=== PATIENT | male | born 1980 | race African-American/Black ===

== ENCOUNTER 2019-11-19 07:04 | Emergency (ER) | payer SELFPAY ==
[~2019-11-19] VITALS: Ht 167.6 cm; Wt 159.0 kg
[~2019-11-19 07:04] MED LIST: ASPI-482 PO; CETI1TAB7 PO; LISI1TAB20 PO; TRAM-48 PO; VENL150C PO
--- NOTE | 2019-11-19 07:24 | PHYS DOC ---
Past Medical History Past Medical History: Anxiety, Depression, GERD, Hypertension, Other Additional Past Medical Histor: " narcolepsy symptoms" ADHD, autism, sleep apnea, IBS Past Surgical History: Appendectomy, Other Additional Past Surgical Histo: " eyes" , ventral hernia repair, chronic generalized muscle ache Smoking Status: Never Smoker Alcohol Use: None Drug Use: None General Adult EDM: Chief Complaint: ABDOMINAL PAIN HPI: HPI: Patient is a 39 year old male presents with history of left flank pain which occurred suddenly at 0400 this morning. Patient does report some associated nausea and vomiting. Reports has had some loose bowel movements. Patient does have a past medical history of IBS. Denies fever or chills. Denies known sick contacts. Denies travel outside [place]. Review of Systems: Review of Systems: Constitutional: Denies fever or chills Eyes: Denies redness or eye pain HENT: Denies nasal congestion or sore throat Respiratory: Denies cough or shortness of breath Cardiovascular: Denies chest pain or palpitations GI: Reports left abdominal pain, nausea, and vomiting : Denies dysuria or hematuria Musculoskeletal: Reports left flank pain; denies neck pain Integument: Denies rash or skin lesions Neurologic: Denies headache, focal weakness or sensory changes Complete systems were reviewed and found to be within normal limits, except as documented in this note. Current Medications: Current Medications Medications (Trade) Dose Ordered Sig/Ernestine Start Time Stop Time Status Last Admin Dose Admin Famotidine (Pepcid Vial) 20 mg 1X ONCE 11/19/19 07:30 11/19/19 07:31 Ketorolac Tromethamine (Toradol 15mg Vial) 15 mg 1X ONCE 11/19/19 07:30 11/19/19 07:31 Metoclopramide HCl (Reglan Vial) 10 mg 1X ONCE 11/19/19 07:30 11/19/19 07:31 Sodium Chloride 1,000 ml @ 1,000 mls/hr 1X ONCE 11/19/19 07:15 11/19/19 08:14 Allergies: Allergies: Allergies Coded Allergies Type Severity Reaction Last Updated Verified cyclopentolate Allergy Intermediate Rash 07/08/14 No morphine Adverse Reaction Intermediate " makes my pain worse" 07/08/14 No Physical Exam: PE: Constitutional: Well developed, obese, no acute distress, non-toxic appearance HENT: Normocephalic, atraumatic Eyes: Conjunctiva normal, no discharge Neck: Normal range of motion, no tenderness, supple Cardiovascular: Heart rate normal, regular rhythm Lungs & Thorax: Bilateral breath sounds clear to auscultation, no wheezing Abdomen: Soft, no tenderness, obese Skin: Warm, dry, no erythema, no rash Back: No tenderness, left CVA tenderness Extremities: No tenderness, ROM intact, no edema Neurologic: Alert and oriented X 3, no focal deficits noted Psychologic: Affect normal, judgment normal EKG: EKG: [] Radiology/Procedures: Radiology/Procedures: PROCEDURE: CT ABDOMEN PELVIS WO CONTRAST CT ABDOMEN PELVIS WO CONTRAST History: Left flank pain. Technique: Noncontrast examination of the abdomen and pelvis. Coronal and sagittal reconstructions were performed. Exposure: One or more of the following individualized dose reduction techniques were utilized for this examination: 1. Automated exposure control 2. Adjustment of the mA and/or kV according to patient size 3. Use of iterative reconstruction technique. Comparison: September 07, 2007 Findings: Lower chest: No consolidation or pleural effusion. Abdomen and pelvis: Hepatic steatosis. The spleen, adrenal glands, pancreas and gallbladder are unremarkable. No biliary ductal dilatation. Mild left perinephric and periureteral fat stranding. No hydronephrosis. No renal, ureteral or urinary bladder stone. Decompressed urinary bladder. Prior appendectomy. No evidence of bowel obstruction. Periumbilical fat-containing hernia, increased compared to 2008. No pathologic lymphadenopathy. No ascites. Bones: No pathologic osseous lesions. Impression: 1. Mild left perinephric/periureteral fat stranding, may relate to recently passed stone or infection. No hydronephrosis. 2. Periumbilical fat-containing hernia, increased compared to 2007. Electronically signed by: Douglas Holbrook DO (11/19/2019 8:52 AM) [id number] Course & Med Decision Making: Course & Med Decision Making Pertinent Labs and Imaging studies reviewed. (See chart for details) Patient presents with sudden left-sided flank pain and associated nausea and vomiting. Patient does report history of IBS. Pain/nausea addressed. IV fluid hydration given. Labs obtained and posted to chart. BUN/Creat normal. UA with microscopic hematuria. CT abdomen/pelvis with signs of possible recently passed stone. No obstructing stone currently. Patient stable for discharge with outpatient follow-up with PCP. Discussed find ings and plan with patient, who acknowledges understanding and agreement. Jenny Disclaimer: Jenny Disclaimer: This electronic medical record was generated, in whole or in part, using a voice recognition dictation system. Departure Departure Impression: Primary Impression: Flank pain, acute Disposition: 01 HOME, SELF-CARE Condition: STABLE Referrals: Dc SMART MD (PCP) Patient Instructions: Diet for Kidney Stones, Kidney Stones, [id number] Scripts Ondansetron (ONDANSETRON ODT) 4 Mg Tab.rapdis 1 TAB PO Q6HRS PRN for NAUSEA, #16 TAB Prov: CLAY ALEXANDER DO 11/19/19 CLAY ALEXANDER DO November 19, 2019 07:24
[2019-11-19] MEDS: IV NORMAL SALINE 1000ML BAG 1,000 ML IV ONE (07:41)
[2019-11-19] MEDS: FAMOTIDINE 20 MG/2 ML VIAL IVP ONE (07:41)
[2019-11-19] MEDS: METOCLOPRAMIDE HCL 10 MG/2 ML VIAL. IVP ONE (07:41)
[2019-11-19] MEDS: KETOROLAC 15 MG/ML VIAL. IVP ONE (07:42)
[2019-11-19 07:59] LABS: BASO # 0.1 x10^3/uL (0.0-0.2); BASO % 1 % (0-3); EOS # 0.1 x10^3/uL (0.0-0.7); EOS % 1 % (0-3); HEMATOCRIT 48.9 % (39.0-53.0); HEMOGLOBIN 16.1 g/dL (13.0-17.5); LYMPH # 1.9 x10^3/uL (1.0-4.8); LYMPH % 15 % (24-48); MEAN CORPUSCULAR HEMOGLOBIN 30 pg (25-35); MEAN CORPUSCULAR HGB CONC 33 g/dL (31-37); MEAN CORPUSCULAR VOLUME 91 fL (79-100); MONO % 8 % (0-9); NEUT # 9.5 x10^3/uL (1.8-7.7); NEUT % 76 % (31-73); PLATELET COUNT 300 x10^3/uL (140-400); RED BLOOD COUNT 5.39 x10^6/uL (4.30-5.70); RED CELL DISTRIBUTION WIDTH 14.6 % (11.5-14.5); WHITE BLOOD COUNT 12.6 x10^3/uL (4.0-11.0)
[2019-11-19 08:06] LABS: CREATININE 1.1 mg/dL (0.7-1.3); GFR 89.3; POTASSIUM 3.7 mmol/L (3.5-5.1)
[2019-11-19 08:13] LABS: ALBUMIN 3.3 g/dL (3.4-5.0); ALBUMIN/GLOBULIN RATIO 0.6 (1.0-1.7); BACTERIA,URINE 0 /HPF (0-FEW); BILIRUBIN,URINE NEGATIVE (NEG); CLARITY,URINE HAZY; COLOR,URINE STRAW; MAGNESIUM 1.9 mg/dL (1.8-2.4); NITRITE,URINE NEGATIVE (NEG); PROTEIN,URINE NEGATIVE (NEG-TRACE); RBC,URINE >40 /HPF (0-2); SQUAMOUS EPITHELIAL CELL,UR FEW /LPF; TOTAL BILIRUBIN 0.3 mg/dL (0.2-1.0); TOTAL PROTEIN 8.4 g/dL (6.4-8.2); UROBILINOGEN,URINE 0.2 mg/dL (0.2 mg/dL); WBC,URINE OCC /HPF (0-4)
--- NOTE | 2019-11-19 08:55 | RAD ---
CT ABDOMEN PELVIS WO CONTRAST History: Left flank pain. Technique: Noncontrast examination of the abdomen and pelvis. Coronal and sagittal reconstructions were performed. Exposure: One or more of the following individualized dose reduction techniques were utilized for this examination: 1. Automated exposure control 2. Adjustment of the mA and/or kV according to patient size 3. Use of iterative reconstruction technique. Comparison: September 07, 2007 Findings: Lower chest: No consolidation or pleural effusion. Abdomen and pelvis: Hepatic steatosis. The spleen, adrenal glands, pancreas and gallbladder are unremarkable. No biliary ductal dilatation. Mild left perinephric and periureteral fat stranding. No hydronephrosis. No renal, ureteral or urinary bladder stone. Decompressed urinary bladder. Prior appendectomy. No evidence of bowel obstruction. Periumbilical fat-containing hernia, increased compared to 2007. No pathologic lymphadenopathy. No ascites. Bones: No pathologic osseous lesions. Impression: 1. Mild left perinephric/periureteral fat stranding, may relate to recently passed stone or infection. No hydronephrosis. 2. Periumbilical fat-containing hernia, increased compared to 2007. Electronically signed by: Douglas Holbrook DO (11/19/2019 8:52 AM) [id number]
[2019-11-19 09:00] VITALS: BP 154/76
[2019-11-19] MEDS ORDERED: ONDA4TAB12 PO (09:04)
== END 2019-11-19 09:25 | disposition home or self-care (01) ==
LOC: ER 07:04
DX: R10.9 Unspecified abdominal pain (principal); R11.2 Nausea with vomiting, unspecified; K58.9 Irritable bowel syndrome, unspecified; K21.9 Gastro-esophageal reflux disease without esophagitis; I10 Essential (primary) hypertension; Z90.89 Acquired absence of other organs; Z98.890 Other specified postprocedural states; Z88.5 Allergy status to narcotic agent; Z88.8 Allergy status to other drugs, medicaments and biological substances
CPT/HCPCS: 36415; 74176; 80053; 81001; 83690; 83735; 85025; 96361; 96374; 96375; 99284; J1885; J2765; J3490; J7030

== ENCOUNTER 2020-11-13 08:28 | Observation (INO) | payer SELFPAY ==
[~2020-11-13] VITALS: Ht 167.6 cm; Wt 172.4 kg
[~2020-11-13 08:28] MED LIST changes: +ONDA4TAB12 PO
--- NOTE | 2020-11-13 08:46 | PHYS DOC ---
Past Medical History Past Medical History: Anxiety, Depression, GERD, Hypertension, Other Additional Past Medical Histor: " narcolepsy symptoms" ADHD, autism, sleep apnea, IBS Past Surgical History: Appendectomy, Other Additional Past Surgical Histo: " eyes" , ventral hernia repair, chronic generalized muscle ache Smoking Status: Never Smoker Alcohol Use: None Drug Use: None General Adult EDM: Chief Complaint: CHEST PAIN HPI: HPI: Patient is a 40 year old male who presented to ER due to left-sided chest pain that radiated to his left shoulder started at 6 AM this morning. The pain has been constant, the pain is pressure and heaviness in nature. Patient denies any trouble breathing, no cough, no fever. EMS were called to take him here for evaluation. Patient was given 324 mg aspirin and 1 dose of nitroglycerin by EMS. Patient denies any chest pain relief with the nitroglycerin. Patient denies any history of coronary artery disease. Patient is not vaccinated for Covid, denies any history of COVID-19 infection. Review of Systems: Review of Systems: Constitutional: Denies fever or chills. [] Eyes: Denies change in visual acuity. [] HENT: Denies nasal congestion or sore throat. [] Respiratory: Denies cough or shortness of breath. [] Cardiovascular: Positive for chest pain, no edema. [] GI: Denies abdominal pain, nausea, vomiting, bloody stools or diarrhea. [] : Denies dysuria. [] Musculoskeletal: Denies back pain or joint pain. [] Integument: Denies rash. [] Neurologic: Denies headache, focal weakness or sensory changes. [] Endocrine: Denies polyuria or polydipsia. [] Lymphatic: Denies swollen glands. [] Psychiatric: Denies depression or anxiety. [] Heart Score: C/O Chest Pain: Yes HEART Score for Chest Pain: HEART Score for Chest Pain Response (Comments) Value History Moderately Suspicious 1 ECG Nonspecific Repolarizatio 1 Age < 45 0 Risk Factors 1 or 2 Risk Factors 1 Troponin < Normal Limit 0 Total 3 Risk Factors: Risk Factors: DM, Current or recent (<one month) smoker, HTN, HLP, family history of CAD, obesity. Risk Scores: Score 0 - 3: 2.5% MACE over next 6 weeks - Discharge Home Score 4 - 6: 20.3% MACE over next 6 weeks - Admit for Clinical Observation Score 7 - 10: 72.7% MACE over next 6 weeks - Early Invasive Strategies Allergies: Allergies: Allergies Coded Allergies Type Severity Reaction Last Updated Verified cyclopentolate Allergy Intermediate Rash 11/13/20 No morphine Adverse Reaction Intermediate " makes my pain worse" 11/13/20 No Physical Exam: PE: Constitutional: Well developed, well nourished, no acute distress, non-toxic appearance. morbidly obose. HENT: Normocephalic, atraumatic, bilateral external ears normal, oropharynx moist, no oral exudates, nose normal. [] Eyes: PERRLA, EOMI, conjunctiva normal, no discharge. [] Neck: Normal range of motion, no tenderness, supple, no stridor. [] Cardiovascular:Heart rate regular rhythm, no murmur [] Lungs & Thorax: Bilateral breath sounds clear to auscultation [] Abdomen: Bowel sounds normal, soft, no tenderness, no masses, no pulsatile masses. [] Skin: Warm, dry, no erythema, no rash. [] Back: No tenderness, no CVA tenderness. [] Extremities: No tenderness, no cyanosis, no clubbing, ROM intact, no edema. [] Neurologic: Alert and oriented X 3, normal motor function, normal sensory function, no focal deficits noted. [] Psychologic: Affect normal, judgement normal, mood normal. [] Current Patient Data: Labs: Laboratory Tests Test 11/13/20 08:54 White Blood Count 9.3 x10^3/uL Red Blood Count 5.00 x10^6/uL Hemoglobin 14.6 g/dL Hematocrit 44.5 % Mean Corpuscular Volume 89 fL Mean Corpuscular Hemoglobin 29 pg Mean Corpuscular Hemoglobin Concent 33 g/dL Red Cell Distribution Width 14.0 % Platelet Count 291 x10^3/uL Neutrophils (%) (Auto) 66 % Lymphocytes (%) (Auto) 22 % Monocytes (%) (Auto) 9 % Eosinophils (%) (Auto) 2 % Basophils (%) (Auto) 1 % Neutrophils # (Auto) 6.2 x10^3/uL Lymphocytes # (Auto) 2.1 x10^3/uL Monocytes # (Auto) 0.9 x10^3/uL Eosinophils # (Auto) 0.2 x10^3/uL Basophils # (Auto) 0.1 x10^3/uL Sodium Level 137 mmol/L Potassium Level 4.3 mmol/L Chloride Level 100 mmol/L Carbon Dioxide Level 29 mmol/L Anion Gap 8 Blood Urea Nitrogen 10 mg/dL Creatinine 1.1 mg/dL Estimated GFR (Cockcroft-Gault) 88.8 BUN/Creatinine Ratio 9 Glucose Level 116 mg/dL Calcium Level 8.8 mg/dL Magnesium Level 1.8 mg/dL Total Bilirubin 0.4 mg/dL Aspartate Amino Transf (AST/SGOT) 18 U/L Alanine Aminotransferase (ALT/SGPT) 25 U/L Alkaline Phosphatase 89 U/L Troponin I Quantitative < 0.017 ng/mL [id number] Natriuretic Peptide < 5 pg/mL Total Protein 7.8 g/dL Albumin 3.3 g/dL Albumin/Globulin Ratio 0.7 Lipase 69 U/L Current Medications Medications (Trade) Dose Ordered Sig/Ernestine Route PRN Reason Start Time Stop Time Status Last Admin Dose Admin Fentanyl Citrate (Fentanyl 2ml Vial) 50 mcg 1X ONCE IVP 11/13/20 09:15 11/13/20 09:16 DC 11/13/20 09:09 Ondansetron HCl (Zofran) 4 mg STK-MED ONCE .ROUTE 11/13/20 09:06 11/13/20 09:06 DC EKG: EKG: EKG was done at 832, heart rate of 100 bpm, sinus rhythm, no ST segment eleva tion. Right axis deviation. No ectopy. Radiology/Procedures: Radiology/Procedures: [][facility] [address] [place] [address] IMAGING REPORT Signed PATIENT: KEANU FARIAS ACCOUNT: [id number] : 1980 LOCATION: ER AGE: 40 SEX: M EXAM STATUS: PRE ER ORD. PHYSICIAN: TAYLER ALMARAZ DO REASON: MID STERNAL CHEST PAIN PROCEDURE: PORTABLE CHEST 1V XR CHEST 1V INDICATION: Reason: MID STERNAL CHEST PAIN / Spl. Instructions: / History: . COMPARISON STUDY: None. FINDINGS: Lungs: Normal lung volume. No pulmonary mass or consolidation. The tracheobronchial tree and hilar structures are normal. Pleura: No pleural effusion or pneumothorax. Heart and Mediastinum: Cardiomegaly. The great vessels of the thorax are normal. IMPRESSION: No consolidation. Electronically signed by: Eda Alejandro MD (11/13/2020 9:13 AM) [id number] DICTATED and SIGNED BY: EDA ALEJANDRO MD DATE: 11/13/20 [id number] Course & Med Decision Making: Course & Med Decision Making Pertinent Labs and Imaging studies reviewed. (See chart for details) Patient is a 40-year-old male who presented to ER due to chest pain, patient is morbidly obese, history of hypertension, EKG did not show any acute problem, his lab work normal so far. Patient will be admitted for observation. Discussed with the hospitalist on-call Dr. Luis who agreed to admit the patient. Jenny Disclaimer: Jenny Disclaimer: This electronic medical record was generated, in whole or in part, using a voice recognition dictation system. Departure Departure Impression: Primary Impression: Chest pain Disposition: ADMITTED INPATIENT Admitting Physician: AUGUSTINE (Dr. Luis) Condition: STABLE Referrals: NO PCP (PCP) TAYLER ALMARAZ DO November 13, 2020 08:46
[2020-11-13] MEDS ORDERED: ONDANSETRON PF 4 MG/2 ML VIAL. ONE (09:06)
[2020-11-13 09:14] LABS: CALCIUM 8.8 mg/dL (8.5-10.1); CREATININE 1.1 mg/dL (0.7-1.3); GFR 88.8; POTASSIUM 4.3 mmol/L (3.5-5.1)
[2020-11-13] MEDS ORDERED: fentaNYL PF VIAL 100 MCG/2 ML VIAL IVP ONE (09:15)
--- NOTE | 2020-11-13 09:15 | RAD ---
XR CHEST 1V INDICATION: Reason: MID STERNAL CHEST PAIN / Spl. Instructions: / History: . COMPARISON STUDY: None. FINDINGS: Lungs: Normal lung volume. No pulmonary mass or consolidation. The tracheobronchial tree and hilar st ructures are normal. Pleura: No pleural effusion or pneumothorax. Heart and Mediastinum: Cardiomegaly. The great vessels of the thorax are normal. IMPRESSION: No consolidation. Electronically signed by: Brendon Alejandro MD (11/13/2020 9:13 AM) [id number]
[2020-11-13 09:16] LABS: BASO # 0.1 x10^3/uL (0.0-0.2); BASO % 1 % (0-3); EOS # 0.2 x10^3/uL (0.0-0.7); EOS % 2 % (0-3); HEMATOCRIT 44.5 % (39.0-53.0); HEMOGLOBIN 14.6 g/dL (13.0-17.5); LYMPH # 2.1 x10^3/uL (1.0-4.8); LYMPH % 22 % (24-48); MEAN CORPUSCULAR HEMOGLOBIN 29 pg (25-35); MEAN CORPUSCULAR HGB CONC 33 g/dL (31-37); MEAN CORPUSCULAR VOLUME 89 fL (79-100); MONO # 0.9 x10^3/uL (0.0-1.1); MONO % 9 % (0-9); NEUT # 6.2 x10^3/uL (1.8-7.7); NEUT % 66 % (31-73); PLATELET COUNT 291 x10^3/uL (140-400); WHITE BLOOD COUNT 9.3 x10^3/uL (4.0-11.0)
[2020-11-13 09:19] LABS: ALBUMIN 3.3 g/dL (3.4-5.0); ALBUMIN/GLOBULIN RATIO 0.7 (1.0-1.7); MAGNESIUM 1.8 mg/dL (1.8-2.4); TOTAL BILIRUBIN 0.4 mg/dL (0.2-1.0); TOTAL PROTEIN 7.8 g/dL (6.4-8.2)
[2020-11-13 11:46] VITALS: BP 147/88
[2020-11-13] MEDS ORDERED: OMEP20TA8 PO (12:31)
[2020-11-13] MEDS ORDERED: LISI40TA6 PO (12:31)
--- NOTE | 2020-11-13 12:33 | NUR ---
Patient arrived on unit at 1145. Patient alert and oriented x4, able to answer admission questions when asked. Belongings at bedside with patient. Patient denies chest pain, just complains of normal chronic pain in his back and knees. The patient described that the chest pain started after his bout of vomiting this morning, which has been happening every morning for the past month and typically lasts about 30 minutes to an hour. Today the vomiting lasted closer to an hour, which then started to cause the chest pain. 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 Patient is requesting assistance with help with he needs help with groceries, he says he takes the bus to the [employer] and is exhausted and short of breath by the time [place] Medications updated in the computer. Called the consult to Dr. Adam.
--- NOTE | 2020-11-13 12:40 | HP ---
ADMIT DATE: 11/13/2020 CHIEF COMPLAINT: Chest pain. HISTORY OF PRESENT ILLNESS: The patient is a pleasant 40-year-old male who is overweight and has several other comorbidities. He states that he recently had quit his job at [employer] because he has developed arthritis. Now, he has developed chest pain, rated at 7/10. It has been occurring since 06:00 this morning. He took some [id number] meds that did not help. Describes his pain as very irritating, worse with moving, better with sitting still. I discussed the case with the ER physician. They did give him an aspirin and some nitro. We are going to admit the patient and consult Cardiology. PAST MEDICAL HISTORY: Anxiety, depression, GERD, hypertension, obesity, narcolepsy symptoms, ADHD, autism, sleep apnea, irritable bowel syndrome, appendectomy, ventral hernia repair, eye surgery, chronic weakness. ALLERGIES: CYCLOPENTOLATE AND MORPHINE. FAMILY HISTORY: CAD. SOCIAL HISTORY: He quit his job at [employer], does not drink, smoke or take drugs. MEDICATIONS: Reviewed. Please refer to the MRAD. REVIEW OF SYSTEMS: GENERAL: No history of weight change, weakness or fevers. SKIN: No bruising, hair changes or rashes. EYES: No blurred, double or loss of vision. NOSE AND THROAT: No history of nosebleeds, hoarseness or sore throat. HEART: He complains of chest pain. LUNGS: Denies cough, hemoptysis, wheezing or shortness of breath. GASTROINTESTINAL: Denies changes in appetite, nausea, vomiting, diarrhea or constipation. GENITOURINARY: No history of frequency, urgency, hesitancy or nocturia. NEUROLOGIC: Denies history of numbness, tingling, tremor or weakness. PSYCHIATRIC: No history of panic, anxiety or depression. ENDOCRINE: No history of heat or cold intolerance, polyuria or polydipsia. EXTREMITIES: Denies muscle weakness, joint pain, pain on walking or stiffness. PHYSICAL EXAMINATION: VITALS: Within normal limits and are stable. GENERAL: He is obese, but pleasant. HEENT: Normal cephalic atraumatic, external auditory canals are patent. Eyes: Extraocular muscles are intact, pupils are equally round and reactive to light and accommodation. MUSCULOSKELETAL: Well developed, well nourished, good range of motion. ENDOCRINE: No thyromegaly was palpated. LYMPHATICS: No cervical chain or axillary nodes were noted. HEMATOPOIETIC: No bruising. NECK: Supple, no JVD, no thyromegaly was noted. LUNGS: Clear to auscultation in all lung hernández without rhonchi or wheezing. HEART: RRR, S1, S2 present. Peripheral pulses intact, no obvious murmurs were noted. ABDOMEN: He has got very large abdomen with decreased bowel sounds. EXTREMITIES: He has got trace edema. NEUROLOGIC: He is very pleasant and moving all extremities. PSYCHIATRIC: Normal affect, normal mood. Stable. SKIN: No ulcerations or rashes, good skin turgor, no jaundice. VASCULAR: Good capillary refill, neurovascular bundle appears to be intact. LABORATORY DATA: Hematology is normal. Electrolytes are normal. Troponin is 0. Chest x-ray shows no acute changes. ASSESSMENT AND PLAN: Chest pain, rule out coronary artery disease. The patient will be admitted. We will check serial enzymes, serial EKGs. Consult Cardiology. Home meds. Deep venous thrombosis prophylaxis. Full code. Cardiac monitoring. ANDREIA/EUGENE DR: Barbara TID: [id number]
--- NOTE | 2020-11-13 12:49 | PDOC2 ---
CARDIOLOGY CONSULT NOTE DATE OF SERVICE: DATE: 11/13/20 TIME: 12:46 CHIEF COMPLAINT: Chest pain HPI: 40-year-old man who comes into the hospital in the setting of chest pain. He reports atypical chest pain that has been occurring on and off over the last 24 hours. It appears to be worsened with movement and better with rest. It appears to be atypical in nature but does not have any anginal component. He has had some nausea and vomting too. He denies any associated palpitations, syncope, orthopnea, PND, nausea or vomiting. He does not have any prior cardiovascular disease. He cannot walk due to pain in his hips. PMHX: 1. Hypertension 2. ADHD 3. Depression anxiety 4. Narcolepsy 5. Autism SOCHX: Never smoker. He lives alone. No alcohol or illicit drug use. He works at [employer]. FAMHX: No family history of early atherosclerotic disease. CURRENT MEDS: Home cardiovascular medications include lisinopril 40 mg daily, aspirin 81 mg daily and hydrochlorothiazide 25 mg daily ALLERGIES: Allergies Coded Allergies Type Severity Reaction Last Updated Verified cyclopentolate Allergy Intermediate Rash 11/13/20 No morphine Adverse Reaction Intermediate " makes my pain worse" 11/13/20 No ROS: Negative for 10 out of 14 systems reviewed unless otherwise mentioned above in HPI PHYSICAL EXAM: Vital Signs/I&O: Vital Signs Date Time Temp Pulse Resp B/P (MAP) Pulse Ox O2 Delivery O2 Flow Rate FiO2 11/13/20 12:08 Room Air 11/13/20 11:46 97.8 93 16 147/88 (107) 96 97.8 Physical Exam: The patient appeared well nourished and normally developed. Head exam is unremarkable. No scleral icterus or corneal arcus noted. Neck is without jugular venous distension, thyromegaly, or carotid bruits. Carotid upstrokes are brisk bilaterally. Lungs are clear to auscultation and percussion. Cardiac exam reveals the PMI to be normally sized and situated. Rhythm is re gular. First and second heart sounds normal. No murmurs, rubs or gallops. Abdominal exam reveals normal bowel sounds, no masses, no organomegaly and no aortic enlargement. Extremities are nonedematous and both femoral and pedal pulses are normal. Msk: No traumua Neuro: No focal deficits DIAGNOSTIC TESTING: EKG is unremarkable Telemetry is unremarkable Cardiac enzymes are negative Lab Laboratory Tests Test 11/13/20 08:54 White Blood Count 9.3 x10^3/uL (4.0-11.0) Red Blood Count 5.00 x10^6/uL (4.30-5.70) Hemoglobin 14.6 g/dL (13.0-17.5) Hematocrit 44.5 % (39.0-53.0) Mean Corpuscular Volume 89 fL (79-100) Mean Corpuscular Hemoglobin 29 pg (25-35) Mean Corpuscular Hemoglobin Concent 33 g/dL (31-37) Red Cell Distribution Width 14.0 % (11.5-14.5) Platelet Count 291 x10^3/uL (140-400) Neutrophils (%) (Auto) 66 % (31-73) Lymphocytes (%) (Auto) 22 % (24-48) L Monocytes (%) (Auto) 9 % (0-9) Eosinophils (%) (Auto) 2 % (0-3) Basophils (%) (Auto) 1 % (0-3) Neutrophils # (Auto) 6.2 x10^3/uL (1.8-7.7) Lymphocytes # (Auto) 2.1 x10^3/uL (1.0-4.8) Monocytes # (Auto) 0.9 x10^3/uL (0.0-1.1) Eosinophils # (Auto) 0.2 x10^3/uL (0.0-0.7) Basophils # (Auto) 0.1 x10^3/uL (0.0-0.2) Sodium Level 137 mmol/L (136-145) Potassium Level 4.3 mmol/L (3.5-5.1) Chloride Level 100 mmol/L (98-107) Carbon Dioxide Level 29 mmol/L (21-32) Anion Gap 8 (6-14) Blood Urea Nitrogen 10 mg/dL (8-26) Creatinine 1.1 mg/dL (0.7-1.3) Estimated GFR (Cockcroft-Gault) 88.8 BUN/Creatinine Ratio 9 (6-20) Glucose Level 116 mg/dL (70-99) H Calcium Level 8.8 mg/dL (8.5-10.1) Total Bilirubin 0.4 mg/dL (0.2-1.0) Aspartate Amino Transf (AST/SGOT) 18 U/L (15-37) Alkaline Phosphatase 89 U/L (46-116) Total Protein 7.8 g/dL (6.4-8.2) Albumin 3.3 g/dL (3.4-5.0) L Albumin/Globulin Ratio 0.7 (1.0-1.7) L Lipase 69 U/L (73-393) L Laboratory Tests 11/13/20 08:54 ASSESSMENT: 1. Atypical chest pain 2. Hypertension 3. Morbid obesity PLAN: 1. At this present time he is a fairly low risk presentation with a normal EKG and negative cardiac enzymes and a unremarkable physical exam. He does have risk factors and some elements of cardiac type pain with an EKG suggestive of prior septal infarct. -Check echo, consider outpt stress testing. -Continue serial enzymes. Thank you for this consultation. Please call with any further questions. DORITA FOSTER MD November 13, 2020 12:49
[2020-11-13] MEDS ORDERED: HYDR-2145 PO (13:16)
[2020-11-13] MEDS: PANTOPRAZOLE 40 MG TABLET.DR. PO SCH (14:38)
[2020-11-13] MEDS: LISINOPRIL 20 MG TABLET PO SCH (14:40)
[2020-11-13] MEDS: VENLAFAXINE XR 37.5 MG CAP.ER.24H. PO SCH (14:40)
[2020-11-13] MEDS: ASPIRIN ENTERIC COATED 81 MG TABLET.DR. PO SCH (14:40)
[2020-11-13] MEDS: hydroCHLOROthiazide 25 MG TABLET PO SCH (14:40)
[2020-11-13 15:00] VITALS: BP 141/76
[2020-11-13] MEDS: ONDANSETRON PF 4 MG/2 ML VIAL. IVP PRN (15:21)
[2020-11-13] MEDS: oxyCODONE/APAP 5/325 1 TAB TABLET PO PRN ×2 (15:22→20:32)
--- NOTE | 2020-11-13 19:03 | EKG ---
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
--- NOTE | 2020-11-13 19:04 | EKG ---
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
[2020-11-13 19:36] VITALS: BP 111/62
--- NOTE | 2020-11-13 19:43 | RAD ---
Single view abdomen dated 11/13/2020. No comparison available. CLINICAL INDICATION: Pain. FINDINGS: 2 supine images submitted. There are nondilated gas-filled loops of bowel throughout. No abnormal yehuda cification. Evaluation is somewhat limited due to underpenetration. IMPRESSION: Nonobstructive bowel gas pattern. Electronically signed by: Anjel Kwon MD (11/13/2020 7:40 PM) [facility]
[2020-11-13 23:05] VITALS: BP 116/71
[2020-11-14 03:04] VITALS: BP 99/69
--- NOTE | 2020-11-14 05:21 | NUR ---
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 NO CONCERNS VOICED, WILL CONTINUE WITH CURRENT POC AND WILL REPORT CHANGES OR ABNORMAL FINDINGS
[2020-11-14] MEDS: ONDANSETRON PF 4 MG/2 ML VIAL. IVP PRN (06:03)
[2020-11-14 07:41] VITALS: BP 137/71
[2020-11-14] MEDS: VENLAFAXINE XR 37.5 MG CAP.ER.24H. PO SCH (07:53)
[2020-11-14] MEDS: ASPIRIN ENTERIC COATED 81 MG TABLET.DR. PO SCH (07:53)
[2020-11-14] MEDS: hydroCHLOROthiazide 25 MG TABLET PO SCH (07:54)
[2020-11-14] MEDS: PANTOPRAZOLE 40 MG TABLET.DR. PO SCH (07:54)
[2020-11-14] MEDS: LISINOPRIL 20 MG TABLET PO SCH (07:54)
[2020-11-14] MEDS: oxyCODONE/APAP 5/325 1 TAB TABLET PO PRN (07:55)
--- NOTE | 2020-11-14 08:02 | NUR ---
Patient stated that his real complaints of coming to the hospital was his nausea and vomiting not chest pain. Patient states he vomits every morning. Page has been sent to MD in regards. Patient has been placed NPO till MD returns call back.
--- NOTE | 2020-11-14 08:19 | NUR ---
Return call from MD Malik. New orders received to consult GI for nausea and vomiting.
--- NOTE | 2020-11-14 09:42 | PDOC2 ---
GI CONSULT Date of Service: DATE: 11/14/20 TIME: 09:41 Reason For Consult: n/v HPI: HPI: 40 y/o male admitted w/ sternal pain "like someone was stepping on my chest" that began yesterday. Tells me this pain was probably related to chronic issues w/ sinus drainage - takes cetirizine and uses CPAP, frequently has vomiting ("spit and phlegm" - does describes retching) in the mornings, particularly with seasonal changes. Currently no chest pain but has upper and lower abdominal "burning." H/o GERD on omeprazole OTC QD - "I take all my pills in the mornings." Says he used to take Reglan but that was stopped due to possible adverse effects. No previous GES. No dysphagia, hematemesis, chronic abd pain, diarrhea, hematochezia, melena, or change in appetite. Reports h/o IBS w/ occasional constipation improved w/ "hydration." Has gained "too much" weight. EGD and colonoscopy in 02/[address] Gan for abd pain (epigastric/generalized) showed normal esophagus, gastritis, normal duodenum, and non-bleeding grade 1 internal hemorrhoids. Antral biopsies showed mild chronic inflammation (negative for H. pylori), random duodenal biopsies were negative for pathology, and random colon and TI biopsies were negative for pathology. No GB, liver, pancreas, or PUD history. Hepatic steatosis noted on imaging. Pe riumbilical hernia noted on CT in 2019 - increased in size from prior. No NSAIDs. PMH: PMH: HTN, [place], autism spectrum disorder, ADHD, anxiety/depression appendectomy, ?incisional hernia repair, eye and leg surgeries as a baby FH: Family History: CVA, DM, Hypertension ROS: GEN: Denies fevers, chills, sweats HEENT: +sinus drainage CV: Denies chest pain RESP: Denies shortness of air, cough GI: Per HPI : Denies hematuria, dysuria ENDO: +weight gain NEURO: Denies confusion, dizziness MSK: +LBP SKIN: Denies jaundice, pruritus Vitals: Vitals: Vital Signs Date Time Temp Pulse Resp B/P (MAP) Pulse Ox O2 Delivery O2 Flow Rate FiO2 11/14/20 07:54 87 137/71 11/14/20 07:41 98.0 20 92 Room Air 98.0 Labs: Labs: Laboratory Tests Test 11/13/20 11:15 11/13/20 14:45 Troponin I Quantitative < 0.017 ng/mL (0.000-0.055) < 0.017 ng/mL (0.000-0.055) Allergies: Coded Allergies: cyclopentolate (Unverified Allergy, Intermediate, Rash, 11/13/20) " his whole body went red, and swelled" morphine (Unverified Adverse Reaction, Intermediate, " makes my pain worse", 11/13/20) Medications: Current Medications Medications (Trade) Dose Ordered Sig/Ernestine Route PRN Reason Start Time Stop Time Status Last Admin Dose Admin Aspirin (Ecotrin) 81 mg DAILY PO 11/13/20 14:30 11/14/20 07:53 Hydrochlorothiazide (Hydrodiuril) 25 mg DAILY PO 11/13/20 14:30 11/14/20 07:54 Lisinopril (Prinivil) 40 mg DAILY PO 11/13/20 14:30 11/14/20 07:54 Pantoprazole Sodium (Protonix) 40 mg DAILYAC PO 11/13/20 14:30 11/14/20 07:54 Venlafaxine HCl (Effexor Xr) 150 mg DAILY PO 11/13/20 14:30 11/14/20 07:53 Ondansetron HCl (Zofran) 4 mg PRN Q6HRS PRN IVP NAUSEA/VOMITING 11/13/20 15:15 11/14/20 06:03 Oxycodone/ Acetaminophen (Percocet 5/325) 1 tab PRN Q4HRS PRN PO PAIN 11/13/20 15:15 11/14/20 07:55 Imaging: Imaging: CXR IMPRESSION: No consolidation. KUB IMPRESSION: Nonobstructive bowel gas pattern. PE: GEN: NAD HEENT: Atraumatic, PERRL LUNGS: CTAB HEART: RRR ABD: NABS, soft, non-tender, obese EXTREMITY: No edema SKIN: No rashes, no jaundice NEURO/PSYCH: A & O 3 A/P: A/P: Atypical chest pain, "burning" abd pain Allergic rhinitis/sinus drainage - chronic Retching/vomiting - frequently in mornings H/o GERD - on omeprazole OTC CRC screen - normal except hemorrhoids in 2010 H/o IBS-C Hepatic steatosis BMI 61 -- Chronic issues - likely multi-factorial. Try Rx strength PPI/optimal dosing (30-45 min before breakfast). Getting pantoprazole 40mg QD here - would send home w/ same. Could also try GI cocktail, Tums, etc. PRN. Okay to eat per GI - d/w nurse. Consider outpt EGD and/or GES - our office can call to arrange. Use Miralax, etc. PRN. ?ENT eval - not available here. SARIKA HENNESSY November 14, 2020 09:42
--- NOTE | 2020-11-14 09:49 | PDOC ---
[facility] PROGRESS NOTE Date of Service DOS: DATE: 11/14/20 TIME: 09:44 Chief Complaint Chief Complaint Chest pain, rule out coronary artery disease. The patient will be admitted. We will check serial enzymes, serial EKGs. Consult Cardiology. Home meds. Deep venous thrombosis prophylaxis. Full code. Cardiac monitoring. History of Present Illness History of Present Illness The patient is a pleasant 40-year-old male who is overweight and has several other comorbidities. He states that he recently had quit his job at [employer] because he has developed arthritis. Now, he has developed chest pain, rated at 7/10. It has been occurring since 06:00 this morning. He took some xraq-hfz-ercwgjz meds that did not help. Describes his pain as very irritating, worse with moving, better with sitting still. I discussed the case with the ER physician. They did give him an aspirin and some nitro. We are going to admit the patient and consult Cardiology. 11/14/2020: patient seen and evaluated. No acute events overnight, afebrile. Serial troponins have been undetectable. Had some nausea this morning with episode of emesis; tolerated soft GI diet without further nausea or vomiting. Per cardiology, low risk currently given normal cardiac enzymes and normal EKG. 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 Echocardiogram pending. Barring normal echocardiogram results, recommend outpatient stress testing. Greater than 30 minutes was spent managing the discharge of this patient. Vitals/I&O Vitals/I&O: Vital Signs Date Time Temp Pulse Resp B/P (MAP) Pulse Ox O2 Delivery O2 Flow Rate FiO2 11/14/20 07:54 87 137/71 11/14/20 07:41 98.0 20 92 Room Air 98.0 I & O 11/13/20 11/13/20 11/14/20 15:00 23:00 07:00 Intake Total 740 ml 0 ml Balance 740 ml 0 ml Physical Exam General: Alert, No acute distress Heart: Regular rate Lungs: Other (Decreased breath sounds bilaterally) Abdomen: Soft, No tenderness Extremities: No clubbing, No cyanosis Skin: No rashes, No breakdown Labs Labs: Laboratory Tests Test 11/13/20 11:15 11/13/20 14:45 Troponin I Quantitative < 0.017 ng/mL (0.000-0.055) < 0.017 ng/mL (0.000-0.055) Assessment and Plan Assessmemt and Plan Problems Medical Problems: (1) Chest pain Status: Acute Comment Review of Relevant I have reviewed the following items fabian (where applicable) has been applied. Medications: Current Medications Medications (Trade) Dose Ordered Sig/Ernestine Route PRN Reason Start Time Stop Time Status Last Admin Dose Admin Aspirin (Ecotrin) 81 mg DAILY PO 11/13/20 14:30 11/14/20 07:53 Hydrochlorothiazide (Hydrodiuril) 25 mg DAILY PO 11/13/20 14:30 11/14/20 07:54 Lisinopril (Prinivil) 40 mg DAILY PO 11/13/20 14:30 11/14/20 07:54 Pantoprazole Sodium (Protonix) 40 mg DAILYAC PO 11/13/20 14:30 11/14/20 07:54 Venlafaxine HCl (Effexor Xr) 150 mg DAILY PO 11/13/20 14:30 11/14/20 07:53 Ondansetron HCl (Zofran) 4 mg PRN Q6HRS PRN IVP NAUSEA/VOMITING 11/13/20 15:15 11/14/20 06:03 Oxycodone/ Acetaminophen (Percocet 5/325) 1 tab PRN Q4HRS PRN PO PAIN 11/13/20 15:15 11/14/20 07:55 Justifications for Admission Other Justification IBEHT BHATIA MD November 14, 2020 09:49
[2020-11-14 11:09] VITALS: BP 120/66
[2020-11-14] MEDS ORDERED: LIDO:MAALOX 1:1 20 ML SINGLE DOSE. PO PRN (11:15)
[2020-11-14] MEDS ORDERED: BISACODYL 5 MG TABLET.DR. PO PRN (11:15)
[2020-11-14] MEDS ORDERED: DICYCLOMINE HCL 10 MG CAPSULE PO PRN (11:15)
[2020-11-14] MEDS ORDERED: CALCIUM CARBONATE 500 MG TAB.CHEW PO PRN (11:15)
[2020-11-14] MEDS ORDERED: POLYETHYLENE GLYCOL 3350 17 GM PACKET. PO PRN (11:15)
--- NOTE | 2020-11-14 11:28 | PDOC3 ---
Discharge Summary Visit Information Date of Admission: November 13, 2020 Date of Discharge: November 14, 2020 Final Diagnosis Problems Medical Problems: (1) Chest pain Status: Acute Brief Hospital Course Allergies Allergies Coded Allergies Type Severity Reaction Last Updated Verified cyclopentolate Allergy Intermediate Rash 11/13/20 No morphine Adverse Reaction Intermediate " makes my pain worse" 11/13/20 No Vital Signs Vital Signs Date Time Temp Pulse Resp B/P (MAP) Pulse Ox O2 Delivery O2 Flow Rate FiO2 11/14/20 11:09 98.1 84 20 120/66 (84) 96 Room Air 98.1 Lab Results Laboratory Tests Test 11/13/20 08:54 11/13/20 11:15 11/13/20 14:45 White Blood Count 9.3 x10^3/uL (4.0-11.0) Red Blood Count 5.00 x10^6/uL (4.30-5.70) Hemoglobin 14.6 g/dL (13.0-17.5) Hematocrit 44.5 % (39.0-53.0) Mean Corpuscular Volume 89 fL (79-100) Mean Corpuscular Hemoglobin 29 pg (25-35) Mean Corpuscular Hemoglobin Concent 33 g/dL (31-37) Red Cell Distribution Width 14.0 % (11.5-14.5) Platelet Count 291 x10^3/uL (140-400) Neutrophils (%) (Auto) 66 % (31-73) Lymphocytes (%) (Auto) 22 % (24-48) Monocytes (%) (Auto) 9 % (0-9) Eosinophils (%) (Auto) 2 % (0-3) Basophils (%) (Auto) 1 % (0-3) Neutrophils # (Auto) 6.2 x10^3/uL (1.8-7.7) Lymphocytes # (Auto) 2.1 x10^3/uL (1.0-4.8) Monocytes # (Auto) 0.9 x10^3/uL (0.0-1.1) Eosinophils # (Auto) 0.2 x10^3/uL (0.0-0.7) Basophils # (Auto) 0.1 x10^3/uL (0.0-0.2) Sodium Level 137 mmol/L (136-145) Potassium Level 4.3 mmol/L (3.5-5.1) Chloride Level 100 mmol/L (98-107) Carbon Dioxide Level 29 mmol/L (21-32) Anion Gap 8 (6-14) Blood Urea Nitrogen 10 mg/dL (8-26) Creatinine 1.1 mg/dL (0.7-1.3) Estimated GFR (Cockcroft-Gault) 88.8 BUN/Creatinine Ratio 9 (6-20) Glucose Level 116 mg/dL (70-99) Calcium Level 8.8 mg/dL (8.5-10.1) Magnesium Level 1.8 mg/dL (1.8-2.4) Total Bilirubin 0.4 mg/dL (0.2-1.0) Aspartate Amino Transf (AST/SGOT) 18 U/L (15-37) Alanine Aminotransferase (ALT/SGPT) 25 U/L (16-63) Alkaline Phosphatase 89 U/L (46-116) Troponin I Quantitative < 0.017 ng/mL (0.000-0.055) < 0.017 ng/mL (0.000-0.055) < 0.017 ng/mL (0.000-0.055) IF-Wdg-J-Type Natriuretic Peptide < 5 pg/mL (0-124) Total Protein 7.8 g/dL (6.4-8.2) Albumin 3.3 g/dL (3.4-5.0) Albumin/Globulin Ratio 0.7 (1.0-1.7) Lipase 69 U/L (73-393) Laboratory Tests Test 11/13/20 14:45 Troponin I Quantitative < 0.017 ng/mL (0.000-0.055) Brief Hospital Course Mr. Mendez is a 40 old male who presented with epigastric chest pain. He had associated nausea and vomiting prior to his symptoms. Consultations were placed to cardiology and GI. Serial troponins were negative. Per cardiology, low risk currently given normal cardiac enzymes and normal EKG. 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 Echocardiogram was obtained and showed left ventricular systolic function is normal and the ejection fraction is within normal range; estimated ejection fraction 60-65%. There is normal LV segmental wall motion. He was recommend outpatient stress testing. Greater than 30 minutes was spent managing the discharge of this patient. Discharge Information Condition at Discharge: Improved Follow Up: Weeks Disposition/Orders: D/C to Home Scheduled Aspirin (Aspir 81) 81 Mg Tablet.dr, 81 MG PO DAILY, (Reported) Entered as Reported by: STEPHANIE PERALES on 07/11/141847 Last Action: Continued on 11/13/201317 by MAHESH WRAY Cetirizine Hcl/Pseudoephedrine (Zyrtec-D Tablet) 1 Each Tab.er.12h, 1 EACH PO DAILY, (Reported) Entered as Reported by: STEPHANIE PERALES on 07/11/141847 Last Action: Reviewed on 11/13/201230 by MAHESH WRAY Hydrochlorothiazide (Hydrochlorothiazide Tablet ) 25 Mg Tablet, 25 MG PO DAILY for DIURETIC, Ref 0 (Reported) Entered as Reported by: MAHESH WRAY on 11/13/201315 Last Action: Continued on 11/13/201317 by MAHESH WRAY Lisinopril (Lisinopril) 40 Mg Tablet, 40 MG PO DAILY for HTN, (Reported) Entered as Reported by: MAHESH WRAY on 11/13/201230 Last Action: Converted on 11/13/201317 by MAHESH WRAY Omeprazole (Omeprazole) 20 Mg Tablet.dr, 1 TAB PO DAILY for GERD, #90 Ref 1 (Reported) Entered as Reported by: MAHESH WRAY on 11/13/201230 Last Action: Converted on 11/13/201317 by MAHESH WRAY Venlafaxine Hcl (Effexor Xr) 150 Mg Cap.er.24h, 150 MG PO DAILY, (Reported) Entered as Reported by: STEPHANIE PERALES on 07/11/141847 Last Action: Converted on 11/13/201317 by MAHESH WRAY Discontinued Medications Lisinopril/Hydrochlorothiazide (Lisinopril-Hctz 20-25 Mg Tab) 1 Each Tablet, 1 TAB PO DAILY, #90 Ref 3 (Reported) Entered as Reported by: STEPHANIE PERALES on 07/11/141847 Last Action: Discontinued on 11/13/201230 by MAHESH WRAY Tramadol Hcl (Ultram) 50 Mg Tablet, 50 MG PO DAILY PRN for PAIN, Ref 0 (Reported) Entered as Reported by: STEPHANIE PERALES on 07/11/141847 Last Action: Discontinued on 11/13/201230 by MAHESH KAMALA Justicifation of Admission Dx: Justifications for Admission: Justification of Admission Dx: Yes (Unstable angina) IBETH BHATIA MD November 14, 2020 11:28
--- NOTE | 2020-11-14 11:42 | PDOC ---
CARDIO Progress Notes Date and Time Date of Service 11/14/20 Time of Evaluation 1140 Subjective Subjective: No Chest Pain, No shortness of breath Vitals Vitals Vital Signs Date Time Temp Pulse Resp B/P (MAP) Pulse Ox O2 Delivery O2 Flow Rate FiO2 11/14/20 11:09 98.1 84 20 120/66 (84) 96 Room Air 98.1 Weight Weight [ ] Input and Output Intake and Output Intake and Output 11/14/20 07:00 Intake Total 740 ml Balance 740 ml Intake Oral 740 ml # Voids 2 Laboratory Labs Laboratory Tests Test 11/13/20 14:45 Troponin I Quantitative < 0.017 ng/mL (0.000-0.055) Physical Exam HEENT: Neck Supple W Full Motion Chest: Symmetric LUNGS: Clear to Auscultation Heart: RRR Abdomen: Soft N/T, Other (obese ) Extremities: No Edema Neurology: alert, oriented, follow commands Assessment Assessment 1. Chest pain, atypical; AMI ruled out. Echo pending 2. Hypertension; controlled 3. Morbid obesity 4. GERD with frequent morning vomiting 5. Depression, anxiety 6. Autism Recommendations Encouraged weight loss PPI Could consider outpatient ischemic evaluation Supportive care Justicifation of Admission Dx: Justifications for Admission: Justification of Admission Dx: Yes Comments: Chest pain Vomiting HTN EDUARDO WATSON APRN November 14, 2020 11:42
--- NOTE | 2020-11-14 12:21 | NUR ---
SS following for discharge planning. SS reviewed pt chart and discussed with pt RN. Pt is from home and is currently on room air. Cardiology consulted. ECHO today. Self pay. Discharge plan is to home when medically ready. SS will continue to follow for discharge planning.
[2020-11-14 15:00] VITALS: BP 116/65
--- NOTE | 2020-11-14 15:52 | CARD ---
MR#: [id number] Date of Study: 11/14/2020 Ordering Physician: DORITA FOSTER, Referring Physician: DORITA FOSTER, Tech: Hawa Khanna [facility] APPROVED REPORT EXAM: Two-dimensional and M-mode echocardiogram with Doppler and color Doppler. Other Information Quality : FairHR: 87bpm Rhythm : NSRTechnically limited study due to body habitus. INDICATION Chest Pain RISK FACTORS Hypertension Obesity 2D DIMENSIONS RVDd3.0 (2.9-3.5cm)Left Atrium(2D)3.7 (1.6-4.0cm) IVSd1.5 (0.7-1.1cm)Aortic Root(2D)3.2 (2.0-3.7cm) LVDd4.1 (3.9-5.9cm)LVOT Diameter2.4 (1.8-2.4cm) PWd1.0 (0.7-1.1cm)LVDs2.4 (2.5-4.0cm) FS (%) 39.9 %SV51.9 ml LVEF(%)71.0 (>50%) Aortic Valve AoV Peak Jamie.159.0cm/sAoV VTI25.9cm AO Peak GR.10.1mmHgLVOT Peak Jamie.125.9cm/s AO Mean GR.4mmHgAVA (VMAX)3.44cm2 Mitral Valve MV E Ijzydrsw65.5cm/sMV DECEL [id number] MV A Bveuhajd94.2cm/sE/A Ratio1.1 Tricuspid Valve TR P. Rfyuajos178ed/sTR Peak Gr.25mmHg LEFT VENTRICLE The left ventricle is normal size. Asymentric septal hypertrophy. The left ventricular systolic funct ion is normal and the ejection fraction is within normal range. Estimated ejection fraction 60-65%. T here is normal LV segmental wall motion. The left ventricular diastolic function and filling is nuno l for age. RIGHT VENTRICLE The right ventricle is normal size. There is normal right ventricular wall thickness. The right ventr icular systolic function is normal. ATRIA The left atrium size is normal. The right atrium size is normal. The interatrial septum is intact wit h no evidence for an atrial septal defect or patent foramen ovale as noted on 2-D or Doppler imaging. AORTIC VALVE The aortic valve is grossly normal in structure and function. Doppler and Color Flow revealed no sign ificant aortic regurgitation. There is no significant aortic valvular stenosis. MITRAL VALVE The mitral valve is normal in structure and function. There is no evidence of mitral valve prolapse. There is no mitral valve stenosis. Doppler and Color Flow revealed no mitral valve regurgitation note d. TRICUSPID VALVE The tricuspid valve is normal in structure and function. Doppler and Color Flow revealed trace tricus pid regurgitation. Estimated PAP 28 mmHg. There is no tricuspid valve stenosis. PULMONIC VALVE Doppler and Color Flow revealed trace to mild pulmonic valvular regurgitation. There is no pulmonic v alvular stenosis. GREAT VESSELS The aortic root is normal in size. The ascending aorta is normal in size. The IVC is normal in size a nd collapses >50% with inspiration. PERICARDIAL EFFUSION There is no evidence of significant pericardial effusion. Critical Notification Critical Value: No <Conclusion> The left ventricular systolic function is normal and the ejection fraction is within normal range. E stimated ejection fraction 60-65%. There is normal LV segmental wall motion. Signed by : Dorita Foster, Electronically Approved : 11/14/2020 15:52:15
--- NOTE | 2020-11-14 16:59 | NUR ---
Patient is to discharge home with shift with self care. Cab was called for patient. Patients mother notified of discharge.
== END 2020-11-14 17:03 | disposition home or self-care (01) ==
LOC: ER 08:28 → 2 NORTH 09:52
PROVIDERS: ADMIT Internal Medicine; ATTEND Internal Medicine
DX: R07.89 Other chest pain (principal); F41.8 Other specified anxiety disorders; F84.0 Autistic disorder; F90.9 Attention-deficit hyperactivity disorder, unspecified type; E66.01 Morbid (severe) obesity due to excess calories; G47.419 Narcolepsy without cataplexy; I10 Essential (primary) hypertension; I25.2 Old myocardial infarction; F41.9 Anxiety disorder, unspecified; F32.9 Major depressive disorder, single episode, unspecified; K21.9 Gastro-esophageal reflux disease without esophagitis; K29.70 Gastritis, unspecified, without bleeding; K42.9 Umbilical hernia without obstruction or gangrene; K58.9 Irritable bowel syndrome, unspecified; G47.33 Obstructive sleep apnea (adult) (pediatric); K76.0 Fatty (change of) liver, not elsewhere classified; Z79.82 Long term (current) use of aspirin; Z79.899 Other long term (current) drug therapy; Z82.3 Family history of stroke; Z90.49 Acquired absence of other specified parts of digestive tract; Z98.890 Other specified postprocedural states; Z68.44 Body mass index [BMI] 60.0-69.9, adult
CPT/HCPCS: 36415; 71045; 74018; 80053; 83690; 83735; 83880; 84484; 85025; 93005; 93306; 96374; 96375; 96376; 99285; G0378; J2405; J3010; G0379

== ENCOUNTER 2021-01-29 06:57 | Emergency (ER) | payer SELFPAY ==
[~2021-01-29] VITALS: Ht 167.6 cm; Wt 172.7 kg
[~2021-01-29 06:57] MED LIST changes: +HYDR-2145 PO; +LISI40TA6 PO; +OMEP20TA8 PO
[2021-01-29 08:05] LABS: BASO # 0.1 x10^3/uL (0.0-0.2); BASO % 1 % (0-3); EOS # 0.3 x10^3/uL (0.0-0.7); EOS % 2 % (0-3); HEMATOCRIT 45.7 % (39.0-53.0); HEMOGLOBIN 15.1 g/dL (13.0-17.5); LYMPH # 2.4 x10^3/uL (1.0-4.8); LYMPH % 17 % (24-48); MEAN CORPUSCULAR HEMOGLOBIN 29 pg (25-35); MEAN CORPUSCULAR HGB CONC 33 g/dL (31-37); MEAN CORPUSCULAR VOLUME 88 fL (79-100); MONO # 1.1 x10^3/uL (0.0-1.1); MONO % 8 % (0-9); NEUT # 10.7 x10^3/uL (1.8-7.7); NEUT % 73 % (31-73); PLATELET COUNT 320 x10^3/uL (140-400); RED BLOOD COUNT 5.17 x10^6/uL (4.30-5.70); RED CELL DISTRIBUTION WIDTH 14.6 % (11.5-14.5); WHITE BLOOD COUNT 14.7 x10^3/uL (4.0-11.0)
[2021-01-29] MEDS ORDERED: KETOROLAC 30 MG/ML VIAL. IVP ONE (08:15)
--- NOTE | 2021-01-29 08:42 | RAD ---
EXAMINATION: CT ABDOMEN+PELVIS WO CLINICAL HISTORY: Flank pain TECHNIQUE: Non-IV contrast imaging of the abdomen and pelvis was performed using standard technique, scanning from just above the dome of the diaphragm to the symphysis pubis. Unenhanced imaging is bautista ited for the evaluation of some intra-abdominal and pelvic pathology. CT Dose Reduction Employed: One or more of the following individualized dose reduction techniques wer e utilized for this examination: 1. Automated exposure control 2. Adjustment of the mA and/or kV ac cording to patient size 3. Use of iterative reconstruction technique. COMPARISON: 11/19/2019 FINDINGS: Visualized heart and lungs unremarkable. Diffuse hypoattenuation of the hepatic parenchyma, compatible with steatosis. Gallbladder, pancreas, spleen, adrenal glands, and kidneys unremarkable. Nondistended urinary bladder suboptimally evaluated. Nonenlarged prostate. No dilated bowel. Appendectomy. Nondistended stomach suboptimally evaluated. No abdominal aortic or iliac artery aneurysm. Fat-containing periumbilical hernia, essentially unchanged from prior study. No evidence of acute oss eous abnormality. IMPRESSION: No evidence of acute abdominopelvic abnormality or significant interval change. Electronically signed by: Finn Santoro DO (01/29/2021 8:39 AM) [facility]
[2021-01-29] MEDS ORDERED: fentaNYL PF VIAL 100 MCG/2 ML VIAL IVP ONE (08:45)
[2021-01-29] MEDS ORDERED: IV NORMAL SALINE 1000ML BAG 1,000 ML IV ONE (08:45)
[2021-01-29 09:42] LABS: CALCIUM 9.2 mg/dL (8.5-10.1); CREATININE 0.9 mg/dL (0.7-1.3); POTASSIUM 5.2 mmol/L (3.5-5.1)
[2021-01-29 09:55] LABS: ALBUMIN 3.2 g/dL (3.4-5.0); ALBUMIN/GLOBULIN RATIO 0.6 (1.0-1.7); TOTAL BILIRUBIN 0.4 mg/dL (0.2-1.0); TOTAL PROTEIN 8.2 g/dL (6.4-8.2)
[2021-01-29 10:09] LABS: BILIRUBIN,URINE NEGATIVE (NEG); CLARITY,URINE CLEAR; COLOR,URINE YELLOW; NITRITE,URINE NEGATIVE (NEG); PH,URINE >8.5 (<5.0-8.0); PROTEIN,URINE 100 mg/dL (NEG-TRACE); RBC,URINE 0 /HPF (0-2); UROBILINOGEN,URINE 0.2 mg/dL (0.2 mg/dL); WBC,URINE OCC /HPF (0-4)
[2021-01-29 10:10] LABS: BACTERIA,URINE 0 /HPF (0-FEW)
[2021-01-29] MEDS ORDERED: METHOCARBAMOL 750 MG TABLET PO ONE (11:30)
[2021-01-29] MEDS ORDERED: METH-561 PO (11:59)
--- NOTE | 2021-01-29 11:59 | ED.ADGEN ---
Past Medical History Past Medical History: Anxiety, Depression, GERD, Hypertension, Other Additional Past Medical Histor: " narcolepsy symptoms" ADHD, autism, sleep apnea, IBS, morbid obesity Past Surgical History: Appendectomy, Other Additional Past Surgical Histo: " eyes" , ventral hernia repair, chronic generalized muscle ache Smoking Status: Former Smoker Alcohol Use: None Drug Use: None General Adult EDM: Chief Complaint: FLANK PAIN HPI: HPI: Patient is a 40 year old [f__sex] who presents with [] Review of Systems: Review of Systems: Complete ROS is negative unless otherwise documented in HPI Current Medications: Current Medications Medications (Trade) Dose Ordered Sig/Ernestine Start Time Stop Time Status Last Admin Dose Admin Fentanyl Citrate (Fentanyl 2ml Vial) 50 mcg 1X ONCE 01/29/21 08:45 01/29/21 08:46 DC 01/29/21 09:33 50 MCG Ketorolac Tromethamine (Toradol 30mg Vial) 30 mg 1X ONCE 01/29/21 08:15 01/29/21 08:22 DC 01/29/21 08:39 30 MG Methocarbamol (Robaxin) 750 mg 1X ONCE 01/29/21 11:30 01/29/21 11:31 DC 01/29/21 12:03 750 MG Sodium Chloride 1,000 ml @ 1,000 mls/hr 1X ONCE 01/29/21 08:45 01/29/21 09:44 DC 01/29/21 08:45 1,000 MLS/HR Allergies: Allergies: Allergies Coded Allergies Type Severity Reaction Last Updated Verified cyclopentolate Allergy Intermediate Rash 11/13/20 No morphine Adverse Reaction Intermediate " makes my pain worse" 11/13/20 No Physical Exam: PE: General: Awake, alert, NAD. Well Nourished, well hydrated. Cooperative HEENT: Atraumatic, EOMI, PERRL, airway patent, moist oral mucosa Neck: Supple, trachea midline Respiratory: CTA bilaterally, normal effort, no wheezing/crackles CV: RRR, no murmur, cap refill <2 GI: Soft, nondistended, nontender, no masses MSK: No obvious deformities Skin: Warm, dry, intact Neuro: A&O x3, speech NL, sensory and motor grossly intact, no focal deficits Psych: Normal affect, normal mood, not suicidal or homicidal Current Patient Data: Labs: Laboratory Tests Test 01/29/21 07:25 01/29/21 09:24 01/29/21 09:40 White Blood Count 14.7 x10^3/uL (4.0-11.0) H Red Blood Count 5.17 x10^6/uL (4.30-5.70) Hemoglobin 15.1 g/dL (13.0-17.5) Hematocrit 45.7 % (39.0-53.0) Mean Corpuscular Volume 88 fL (79-100) Mean Corpuscular Hemoglobin 29 pg (25-35) Mean Corpuscular Hemoglobin Concent 33 g/dL (31-37) Red Cell Distribution Width 14.6 % (11.5-14.5) H Platelet Count 320 x10^3/uL (140-400) Neutrophils (%) (Auto) 73 % (31-73) Lymphocytes (%) (Auto) 17 % (24-48) L Monocytes (%) (Auto) 8 % (0-9) Eosinophils (%) (Auto) 2 % (0-3) Basophils (%) (Auto) 1 % (0-3) Neutrophils # (Auto) 10.7 x10^3/uL (1.8-7.7) H Lymphocytes # (Auto) 2.4 x10^3/uL (1.0-4.8) Monocytes # (Auto) 1.1 x10^3/uL (0.0-1.1) Eosinophils # (Auto) 0.3 x10^3/uL (0.0-0.7) Basophils # (Auto) 0.1 x10^3/uL (0.0-0.2) Sodium Level 133 mmol/L (136-145) L Potassium Level 5.2 mmol/L (3.5-5.1) H Chloride Level 100 mmol/L (98-107) Carbon Dioxide Level 29 mmol/L (21-32) Anion Gap 4 (6-14) L Blood Urea Nitrogen 9 mg/dL (8-26) Creatinine 0.9 mg/dL (0.7-1.3) Estimated GFR (Cockcroft-Gault) 112.0 BUN/Creatinine Ratio 10 (6-20) Glucose Level 112 mg/dL (70-99) H Calcium Level 9.2 mg/dL (8.5-10.1) Total Bilirubin 0.4 mg/dL (0.2-1.0) Aspartate Amino Transferase (AST) 19 U/L (15-37) Alanine Aminotransferase (ALT) 31 U/L (16-63) Alkaline Phosphatase 103 U/L (46-116) Troponin I Quantitative < 0.017 ng/mL (0.000-0.055) Total Protein 8.2 g/dL (6.4-8.2) Albumin 3.2 g/dL (3.4-5.0) L Albumin/Globulin Ratio 0.6 (1.0-1.7) L Urine Collection Type Unknown Urine Color Yellow Urine Clarity Clear Urine pH >8.5 (<5.0-8.0) Urine Specific [place] 1.025 (1.000-1.030) Urine Protein 100 mg/dL (NEG-TRACE) Urine Glucose (UA) Negative mg/dL (NEG) Urine Ketones (Stick) Negative mg/dL (NEG) Urine Blood Negative (NEG) Urine Nitrite Negative (NEG) Urine Bilirubin Negative (NEG) Urine Urobilinogen Dipstick 0.2 mg/dL (0.2 mg/dL) Urine Leukocyte Esterase Negative (NEG) Urine RBC 0 /HPF (0-2) Urine WBC Occ /HPF (0-4) Urine Squamous Epithelial Cells None /LPF Urine Bacteria 0 /HPF (0-FEW) Urine Mucus Mod /LPF Laboratory Tests 01/29/21 07:25 Laboratory Tests 01/29/21 09:24 Vital Signs: Vital Signs Date Time Temp Pulse Resp B/P (MAP) Pulse Ox O2 Delivery O2 Flow Rate FiO2 01/29/21 09:33 16 97 Room Air 01/29/21 07:06 99.0 78 139/75 (82) 99.0 EKG: EKG: [] Heart Score: C/O Chest Pain: N/A Risk Factors: Risk Factors: DM, Current or recent (<one month) smoker, HTN, HLP, family history of CAD, obesity. Risk Scores: Score 0 - 3: 2.5% MACE over next 6 weeks - Discharge Home Score 4 - 6: 20.3% MACE over next 6 weeks - Admit for Clinical Observation Score 7 - 10: 72.7% MACE over next 6 weeks - Early Invasive Strategies Radiology/Procedures: Radiology/Procedures: [] Course & Med Decision Making: Course & Med Decision Making Pertinent Labs and Imaging studies reviewed. (See chart for details) [] Dragon Disclaimer: Dragon Disclaimer: This electronic medical record was generated, in whole or in part, using a voice recognition dictation system. Departure Departure Impression: Primary Impression: Back pain Disposition: HOME / SELF CARE / HOMELESS Condition: STABLE Referrals: Dc SMART MD (PCP) Patient Instructions: Back Pain, Adult Scripts Methocarbamol (METHOCARBAMOL) 500 Mg Tablet 500 MG PO QID PRN for MUSCLE PAIN for 5 Days, #20 TAB Prov: MIKE FARIAS MD 01/29/21 MIKE FARIAS MD Jan 29, 2021 11:59
[2021-01-29 12:05] VITALS: BP 147/82
--- NOTE | 2021-01-29 18:25 | EKG ---
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
== END 2021-01-29 12:31 | disposition home or self-care (01) ==
LOC: ER 06:57
DX: M54.9 Dorsalgia, unspecified (principal); R10.9 Unspecified abdominal pain; K21.9 Gastro-esophageal reflux disease without esophagitis; I10 Essential (primary) hypertension; K58.9 Irritable bowel syndrome, unspecified; F90.9 Attention-deficit hyperactivity disorder, unspecified type; Z87.891 Personal history of nicotine dependence; Z90.89 Acquired absence of other organs; Z98.890 Other specified postprocedural states; E66.01 Morbid (severe) obesity due to excess calories; Z68.44 Body mass index [BMI] 60.0-69.9, adult
CPT/HCPCS: 36415; 74176; 80053; 81001; 84484; 85025; 93005; 96361; 96374; 96375; 99285; J1885; J3010; J7030